=== PATIENT | female | born 1980 | race Caucasian/White ===

== ENCOUNTER 2017-09-16 09:17 | Emergency (ER) | payer OTHER ==
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
--- NOTE | 2017-09-16 10:56 | CT ---
Head wo Cont HISTORY: pain in facial area, a lot of facial swelling. TECHNIQUE: Spiral noncontrast CT scan of the brain was obtained along with high-resolution bone windo w reconstructions. Auto dosage and iterative reconstruction techniques were employed. FINDINGS: No acute intracranial hemorrhage or infarct is identified. There is no mass lesion, mass effect, midl ine shift, or ventricular abnormality. No abnormal extra-axial fluid collections are seen. Visualized paranasal sinuses and mastoid air cells are clear. Bone windows show no evidence for skull fracture. IMPRESSION: No acute intracranial abnormality identified. Negative for skull fracture.
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
== END 2017-09-16 11:48 | disposition home or self-care (01) ==
LOC: JP.ED 09:17
DX: S06.0X9A Concussion with loss of consciousness of unspecified duration, initial encounter (principal); S00.83XA Contusion of other part of head, initial encounter; V89.2XXA Person injured in unspecified motor-vehicle accident, traffic, initial encounter
CPT/HCPCS: 70450; 70450-26; 70486; 70486-26; 72050; 72050-26; 99284-25